=== PATIENT | male | born 1990 | race African-American/Black ===

== ENCOUNTER 2022-08-29 19:11 | Emergency (ER) | payer SELFPAY | END 2022-08-29 19:48 | disposition home or self-care (01) | LOC: CSHERS 19:11 | DX: K02.9 Dental caries, unspecified (principal) | CPT/HCPCS: 99282 ==

== ENCOUNTER 2022-09-18 16:30 | Emergency (ER) | payer SELFPAY | END 2022-09-18 17:59 | disposition home or self-care (01) | LOC: CSHERS 16:30 | DX: K04.7 Periapical abscess without sinus (principal) | CPT/HCPCS: 99282 ==